=== PATIENT | male | born 1950 | race African-American/Black ===

== ENCOUNTER 2017-12-06 15:21 | Emergency (ER) | payer OTHER, MEDICARE ==
[~2017-12-06] VITALS: Ht 182.9 cm; Wt 84.0 kg
[~2017-12-06 15:21] MED LIST: ASPI-1158 PO; KEPP500 PO; LISI10TA5 PO; OMEP20CA4 PO
[2017-12-06] MEDS ORDERED: FLUO10TA3 PO (19:08)
[2017-12-06] MEDS ORDERED: ATOR10TA69 PO (19:08)
[2017-12-06] MEDS ORDERED: POLY250017 MC (19:08)
[2017-12-06] MEDS ORDERED: FLUO10CA25 PO (19:08)
[2017-12-06] MEDS ORDERED: HYDR-4001 PO (19:08)
[2017-12-06] MEDS ORDERED: DOCU-150 PO (19:08)
[2017-12-06] MEDS ORDERED: IBUPROFEN 600MG TABLET PO ONE (20:00)
[2017-12-06 20:34] VITALS: BP 138/89
[2017-12-06 21:05] LABS: CLARITY URINE CLEAR (CLEAR); COLOR URINE YELLOW (YELLOW); KETONES URINE NEGATIVE (NEGATIVE); LEUKOCYTE ESTERASE URINE NEGATIVE (NEGATIVE); NITRITE URINE NEGATIVE (NEGATIVE); OCCULT BLOOD URINE NEGATIVE (NEGATIVE); PH URINE 5.5 (4.5-8.0); PROTEIN URINE NEGATIVE (NEGATIVE); SPECIFIC GRAVITY URINE 1.011 (1.005-1.030); UROBILINOGEN URINE 0.2 E.U./dL (0.2-1.0)
== END 2017-12-06 22:10 | disposition home or self-care (01) ==
LOC: ER 16:29
DX: M79.1 Myalgia (principal); R10.30 Lower abdominal pain, unspecified; I10 Essential (primary) hypertension; E78.00 Pure hypercholesterolemia, unspecified; Z86.73 Personal history of transient ischemic attack (TIA), and cerebral infarction without residual deficits; Z79.82 Long term (current) use of aspirin; Z79.899 Other long term (current) drug therapy; Z88.8 Allergy status to other drugs, medicaments and biological substances
CPT/HCPCS: 81003; 99283